=== PATIENT | female | born 1985 | race Caucasian/White ===

== ENCOUNTER 2017-10-01 00:47 | Emergency (ER) | payer OTHER ==
[~2017-10-01] VITALS: Ht 157.5 cm; Wt 55.3 kg
[2017-10-01 00:50] VITALS: TEMP 36.9; Ht 157.5 cm; Wt 55.3 kg
[2017-10-01] MEDS ORDERED: LORAZEPAM 0.5 MG TAB SL STA (01:10)
--- NOTE | 2017-10-01 01:14 | EMERGENCY ROOM VISIT NOTE ---
History Report prepared by Moibgagandeep: Radha Lopez Under the Supervision of: Dr. Gloria Ibanez M.D. First contact with patient: 00:58 Chief Complaint: ANXIETY Stated Complaint: STRESS History of Present Illness The patient is a 32 year old female who presents to the Emergency Room with complaints of an episode of anxiety beginning just prior to arrival. The patient states she just found out that her mother is sick which triggered her to become upset. The patient's brought the patient into the ED because he was concerned for her. He states the patient was not responsive to him for a moment prior to arrival. She notes a headache but denies any chest pain, vomiting, or shortness of breath. The patient denies any chance of . Source of History: patient Onset: just prior to arrival Position: other (generalized) Quality: other (anxiety) Timing: other (episode) Associated Symptoms: + headache, No chest pain, No SOB, No vomiting Review of Systems See HPI for pertinent positives & negatives. A total of 10 systems reviewed and were otherwise negative. Past Medical & Surgical Medical Problems: (1) No Known Active Medical Problems Family History Patient reports no known family medical history. Social History Smoking Status: Never Smoker Marital Status: Housing Status: lives with significant other Current/Historical Medications Scheduled Hydroxychloroquine Sulfate (Plaquenil), 200 MG PO 2XWK Allergies Coded Allergies: No Known Allergies (Unverified , 10/01/17) Physical Exam Vital Signs Date Time Temp Pulse Resp B/P (MAP) Pulse Ox O2 Delivery O2 Flow Rate FiO2 10/01/17 01:59 106 20 123/75 97 10/01/17 00:50 36.9 89 18 111/66 95 Room Air Physical Exam Vital signs reviewed. General: Well-appearing female, in no significant distress. HEENT: No scleral icterus, PERRLA, neck supple. Atraumatic. Cardiovascular: Regular rate and rhythm, no extra sounds. Pulmonary: Clear to auscultation bilaterally, normal work of breathing. Abdomen: Soft, nontender, nondistended, positive bowel sounds. Musculoskeletal: Atraumatic, no peripheral edema. Neurologic: Patient awake alert and oriented x 3, full strength in all 4 extremities. Cranial nerves 2 through 12 grossly intact. Skin: Warm, dry, no rash Medical Decision & Procedures Medications Administered Medications (Trade) Dose Ordered Sig/Stephen Route Start Time Stop Time Status Last Admin Dose Admin Lorazepam (Ativan Tab) 0.5 mg NOW STAT SL 10/01/17 01:10 10/01/17 01:12 DC 10/01/17 01:17 0.5 MG ED Course 0105: Past medical records reviewed. The patient was evaluated in room B8. A complete history and physical examination was performed. 0110: Ordered Ativan Tab 0.5 mg SL. 0159: The patient is resting comfortably. She is ready to go home. 0205: Upon reevaluation, the patient appeared to have improvement of her symptoms. I discussed findings with her. She verbalized agreement of the treatment plan. The patient was discharged home. Medical Decision Differential diagnosis: Etiologies such as mood disorder, infection, hypoglycemia, electrolyte abnormalities, cardiac sources, intracerebral event, toxicologic, neurologic, as well as others were entertained. This patient was evaluated and appeared to be in no significant distress. She is somewhat anxious but states that she heard tonight via phone that her mother is ill. She was given 0.5 mg of Ativan and shortly thereafter was feeling improved. The patient is anxious for discharge. I do not suspect any underlying medical illness. The patient will be discharged in care of her and will attempt to facilitate sleep. She will follow-up with her primary care physician for reevaluation if symptoms persist. Medication Reconcilliation Current Medication List: was personally reviewed by me Blood Pressure Screening Patient's blood pressure: Normal blood pressure Impression Primary Impression: Acute anxiety Scribe Attestation The scribe's documentation has been prepared under my direction and personally reviewed by me in its entirety. I confirm that the note above accurately reflects all work, treatment, procedures, and medical decision making performed by me. Departure Information Dispostion Home / Self-Care Forms HOME CARE DOCUMENTATION FORM, IMPORTANT VISIT INFORMATION Patient Instructions [facility] Additional Instructions Diagnosis: Anxiety Please drink plenty of clear fluids. Avoid stimulants such as nicotine, caffiene Follow up with your doctor this week for reevaluation. Return to the ED for worsening of symptoms or any medical concerns.
[2017-10-01] MEDS ORDERED: HYDR200T5 PO (01:32)
[2017-10-01 01:59] VITALS: BP 123/75; PULSE 106; O2SAT 97
== END 2017-10-01 02:00 | disposition home or self-care (01) ==
LOC: C.EDB 00:48
DX: F41.9 Anxiety disorder, unspecified (principal)